=== PATIENT | male | born 1940 | race Two or more races ===

== ENCOUNTER 2018-11-30 08:01 | Outpatient (CLI) | payer OTHER | END 2018-11-30 08:35 | disposition home or self-care (01) | LOC: LAB 08:01 | DX: I10 Essential (primary) hypertension (principal); R00.2 Palpitations; R42 Dizziness and giddiness; Z12.11 Encounter for screening for malignant neoplasm of colon; Z12.5 Encounter for screening for malignant neoplasm of prostate ==

== ENCOUNTER 2019-07-29 08:42 | Outpatient (CLI) | payer OTHER | END 2019-07-29 08:50 | disposition home or self-care (01) | LOC: LAB 08:42 | DX: R00.2 Palpitations (principal); I11.9 Hypertensive heart disease without heart failure; E11.9 Type 2 diabetes mellitus without complications; E78.2 Mixed hyperlipidemia ==

== ENCOUNTER 2019-07-29 17:37 | Emergency (ER) | payer OTHER ==
[~2019-07-29] VITALS: Ht 167.6 cm; Wt 70.3 kg
== END 2019-07-30 20:12 | disposition home or self-care (01) ==
LOC: ER 17:37
DX: N40.1 Benign prostatic hyperplasia with lower urinary tract symptoms (principal); R31.0 Gross hematuria; R33.8 Other retention of urine; R39.15 Urgency of urination; F41.8 Other specified anxiety disorders

== ENCOUNTER 2019-08-01 17:56 | Emergency (ER) | payer OTHER ==
[~2019-08-01] VITALS: Ht 167.6 cm; Wt 69.9 kg
== END 2019-08-01 21:46 | disposition home or self-care (01) ==
LOC: ER 17:56
DX: R33.8 Other retention of urine (principal); N39.0 Urinary tract infection, site not specified

== ENCOUNTER 2019-08-06 21:51 | Emergency (ER) | payer OTHER ==
[~2019-08-06] VITALS: Ht 167.6 cm; Wt 69.9 kg
== END 2019-08-06 22:40 | disposition home or self-care (01) ==
LOC: ER 21:51
DX: N40.1 Benign prostatic hyperplasia with lower urinary tract symptoms (principal); R33.8 Other retention of urine

== ENCOUNTER 2019-08-17 11:45 | Outpatient (CLI) | payer OTHER | END 2019-08-17 11:49 | disposition home or self-care (01) | LOC: LAB 11:45 | DX: N40.1 Benign prostatic hyperplasia with lower urinary tract symptoms (principal); R33.8 Other retention of urine ==

== ENCOUNTER 2019-08-17 14:42 | Outpatient (CLI) | payer OTHER | END 2019-08-17 14:49 | disposition home or self-care (01) | LOC: SONOGRAMA 14:42 | DX: N40.1 Benign prostatic hyperplasia with lower urinary tract symptoms (principal); R33.8 Other retention of urine ==

== ENCOUNTER 2019-09-01 10:45 | Outpatient (CLI) | payer OTHER | END 2019-09-01 11:02 | disposition home or self-care (01) | LOC: RAD 10:45 → LAB 10:45 | DX: Z01.811 Encounter for preprocedural respiratory examination (principal) ==

== ENCOUNTER 2019-09-19 22:07 | Emergency (ER) | payer OTHER ==
[~2019-09-19] VITALS: Ht 157.5 cm; Wt 64.4 kg
== END 2019-09-19 22:48 | disposition home or self-care (01) ==
LOC: ER 22:07
DX: T83.098A Other mechanical complication of other urinary catheter, initial encounter (principal)

== ENCOUNTER 2019-11-07 09:18 | Outpatient (CLI) | payer OTHER | END 2019-11-07 10:18 | disposition home or self-care (01) | LOC: LAB 09:18 → RAD 09:18 | DX: Z01.811 Encounter for preprocedural respiratory examination (principal); Z12.5 Encounter for screening for malignant neoplasm of prostate; Z12.11 Encounter for screening for malignant neoplasm of colon; I11.9 Hypertensive heart disease without heart failure; Z01.812 Encounter for preprocedural laboratory examination ==

== ENCOUNTER → 2019-11-11 16:23 | Outpatient (CLI) | payer OTHER | END | disposition home or self-care (01) | LOC: LAB 16:23 | DX: N39.0 Urinary tract infection, site not specified (principal); B96.1 Klebsiella pneumoniae [K. pneumoniae] as the cause of diseases classified elsewhere ==

== ENCOUNTER 2020-03-23 07:22 | Outpatient (CLI) | payer OTHER ==
[2020-04-18] MEDS ORDERED: TAMS0.4C PO (10:23)
== END 2020-03-23 07:33 | disposition home or self-care (01) ==
LOC: NUCLEAR 07:22
PROVIDERS: ATTEND Urology
DX: I25.10 Atherosclerotic heart disease of native coronary artery without angina pectoris (principal); N40.1 Benign prostatic hyperplasia with lower urinary tract symptoms; R33.9 Retention of urine, unspecified; I50.20 Unspecified systolic (congestive) heart failure
CPT/HCPCS: 78452; 93017; A9500; J0153

== ENCOUNTER 2020-04-23 05:40 | Day surgery (SDC) | payer OTHER | END 2020-04-24 08:00 | disposition home or self-care (01) | LOC: CIR.AMB 05:40 | DX: N40.1 Benign prostatic hyperplasia with lower urinary tract symptoms (principal); R33.8 Other retention of urine ==

== ENCOUNTER 2020-05-04 08:50 | Outpatient (CLI) | payer OTHER ==
[~2020-05-04 08:50] MED LIST: TAMS0.4C PO
== END 2020-05-04 08:55 | disposition home or self-care (01) ==
LOC: LAB 08:50
PROVIDERS: ATTEND Urology
DX: N30.00 Acute cystitis without hematuria (principal)

== ENCOUNTER 2021-05-06 08:18 | Outpatient (CLI) | payer OTHER | END 2021-05-06 08:25 | disposition home or self-care (01) | LOC: LAB 08:18 | PROVIDERS: ATTEND General Practice | DX: R00.2 Palpitations (principal); R42 Dizziness and giddiness; Z12.11 Encounter for screening for malignant neoplasm of colon; E55.9 Vitamin D deficiency, unspecified; N40.0 Benign prostatic hyperplasia without lower urinary tract symptoms; F10.20 Alcohol dependence, uncomplicated; D64.89 Other specified anemias ==

== ENCOUNTER 2021-05-23 08:46 | Outpatient (CLI) | payer OTHER | END 2021-05-23 08:56 | disposition home or self-care (01) | LOC: MRI 08:46 | PROVIDERS: ATTEND General Practice | DX: G30.8 Other Alzheimer's disease (principal); R41.3 Other amnesia | CPT/HCPCS: 70553; A9575 ==